=== PATIENT | male | born 1950 | race Caucasian/White ===

== ENCOUNTER 2016-10-25 10:36 | Emergency (ER) | payer OTHER ==
--- NOTE | 2016-10-25 11:35 | EDDOCDS ---
Nurse's Notes [facility] Name: Deepak Rodriguez Age: 65 yrs Sex: Male : 1950 Arrival Date: 10/25/2016 Time: 10:36 Bed TR1 Private MD: Itzel Oshea E Diagnosis: Cellulitis of right toe-Paronychia great toe Presentation: 10/25 10:45 Presenting complaint: Patient states: redness, swelling, and pain to right great toe. dy symptoms started Sunday night. Adult Sepsis Screening: The patient does not have new or worsening altered mentation. Patient's respiratory rate is less than 22. Systolic blood pressure is greater than 100. Patient has a qSOFA score of 0- Negative Sepsis Screen. Suicide/Homicide risk assessment- the patient denies having any suicidal and/or homicidal ideations and does not present with any other emotional, behavioral or mental health complaints. Status: Patient is not a flight service agent or dependent. Transition of care: patient was not received from another setting of care. 10:45 Acuity: PAULINO Level 4 dy 10:45 Method Of Arrival: Walkin/Carried/Asstd dy Triage Assessment: 10:50 General: Appears in no apparent distress. Pain: Location: right first toe. HIV dy screening NA for this visit Offered previously. Musculoskeletal: Circulation, motion, and sensation intact. Historical: - Allergies: No known drug Allergies; - Home Meds: 1. metformin 1,000 mg oral tab 1 tab 2 times per day 2. Novolog 100 unit/mL Sub-Q soln sliding scale 3. enalapril maleate 10 mg Oral tab 1 tab once daily 4. triamterene-hydrochlorothiazid 37.5-25 mg Oral tab 1 tab once daily 5. simvastatin 10 mg Oral tab 1 tab once daily 6. aspirin 81 mg Oral tab 1 tab once daily 7. metoprolol tartrate 25 mg Oral tab 1 tab 2 times per day 8. Toujeo SoloStar 300 unit/mL (1.5 mL) subcutaneous inpn 50 units - PMHx: Hypertension; Diabetes - NIDDM: uncontrolled; Hypercholesterolemia; - PSHx: Tonsillectomy; - Social history: Smoking status: Patient states was never smoker of tobacco. No barriers to communication noted, The patient speaks fluent Cape Verdean, Speaks appropriately for age. - Family history: Not pertinent. - : The pt / caregiver states he / she is not on anticoagulants. Home medication list is obtained from the patient. - Exposure Risk Screening:: None identified. Screenin:32 Screening information is obtained from the patient. Fall risk: No risks identified. mlb1 Assistance ADL's: requires no assistance with activities of daily living. Abuse/DV Screen: The patient / caregiver reports he/she is: not in a situation that causes fear, pain or injury. Nutritional screening: No deficits noted. Advance Directives: Currently, there is no health care proxy. home support is adequate. Assessment: 11:31 General: Appears in no apparent distress, comfortable, Behavior is appropriate for age, mlb1 cooperative. Pain: Location: right first toe Pain currently is 2 out of 10 on a pain scale. Musculoskeletal: Circulation, motion, and sensation intact Swelling present in right first toe. Vital Signs: 10:37 BP 133 / 85; Pulse 71; Resp 18; Temp 97.8(O); Pulse Ox 94% ; Weight 107.95 kg; Height 5 cmb ft. 4 in. (162.56 cm); Pain 7/10; 10:37 Body Mass Index 40.85 (107.95 kg, 162.56 cm) cmb Vitals: 10:37 Log In Time: October 25, 2016 at 10:33. cmb ED Course: 10:37 Patient visited by Darcie Dubon. cmb 10:37 Itzel Oshea is Private Physician. cmb 10:37 Patient moved to Waiting cmb 10:39 Patient moved to Pre RCE cmb 10:46 Triage Initiated dy 10:50 Patient visited by Bertin Bacon RN. dy 11:03 Patient moved to Triage 1 mlb1 11:08 [facility] cc10 11:08 Jersey Hdz MD is Attending Physician. cc10 11:10 Patient visited by Micheal Robbins PA-C. cc10 11:10 Patient visited by Micheal Robbins PA-C. cc10 11:12 Patient visited by Micheal Robbins PA-C. cc10 11:22 Agustín Bonilla DPM is Referral Physician. cc10 11:33 Patient visited by Sukhi Rodriguez RN. mlb1 11:33 Patient moved to TR1 jf3 11:33 The patient / caregiver is instructed regarding the plan of care and ED course. mlb1 11:33 No IV's were initiated during this patient's visit. No procedures done that require mlb1 assistance. Order Results: There are currently no results for this order. Outcome: 11:22 Discharge ordered by Provider. cc10 11:33 Discharge Assessment: Patient awake, alert and oriented x 3. No cognitive and/or mlb1 functional deficits noted. Patient verbalized understanding of disposition instructions. patient administered narcotics - no. The following High Risk Discharge criteria are identified: None. Discharged to home ambulatory. Condition: good. Discharge instructions given to patient, Instructed on discharge instructions, follow up and referral plans. medication usage, wound care, Demonstrated understanding of instructions, medications, Pt was receptive of discharge instructions/ teaching. Prescriptions given X 1. No special radiology studies were completed. Property sent home with patient. 11:33 Patient left the ED. mlb1 Signatures: Bertin Bacon RN RN dy Barney, Michael B RN RN mlDarcie Recio cmb Micheal Robbins, PA-C PA-C cc10 Rigoberto James,KALYANI RN jf3 Corrections: (The following items were deleted from the chart) 10:39 10:37 BP 133 / 85; Pulse 71bpm; Resp 18bpm; Pulse Ox 94%; Temp 97.8F Oral; 107.95 kg; cmb Height 6 ft. 2 in.; BMI: 30.5; Pain 7/10; cmb 10:52 10:50 Home Meds: tejeo daily; 50 units; dayana mlb1 MTDD
--- NOTE | 2016-10-25 11:35 | EDDOCDS ---
Physician Documentation [facility] Name: Deepak Rodriguez Age: 65 yrs Sex: Male : 1950 Arrival Date: 10/25/2016 Time: 10:36 Bed TR1 Private MD: Itzel Oshea E Disposition: 10/25/16 11:22 Discharged to Home/Self Care. Impression: Cellulitis of right toe - Paronychia great toe. - Condition is Stable. - Discharge Instructions: Paronychia. - Prescriptions for Augmentin 875- 125 mg Oral Tablet - take 1 tablet by ORAL route every 12 hours for 10 days; 20 tablet. - Medication Reconciliation, Local Pharmacy Hours form. - Follow up: Emergency Department; When: As needed; Reason: Worsening of conditions. Follow up: Agustín Bonilla DPM; When: Call to arrange an appointment; Reason: Wound/Symptom Recheck, Recheck today's complaints, Worsening of conditions, Continuance of care. - Problem is an ongoing problem. - Symptoms have improved. Historical: - Allergies: No known drug Allergies; - Home Meds: 1. metformin 1,000 mg oral tab 1 tab 2 times per day 2. Novolog 100 unit/mL Sub-Q soln sliding scale 3. enalapril maleate 10 mg Oral tab 1 tab once daily 4. triamterene-hydrochlorothiazid 37.5-25 mg Oral tab 1 tab once daily 5. simvastatin 10 mg Oral tab 1 tab once daily 6. aspirin 81 mg Oral tab 1 tab once daily 7. metoprolol tartrate 25 mg Oral tab 1 tab 2 times per day 8. Toujeo SoloStar 300 unit/mL (1.5 mL) subcutaneous inpn 50 units - PMHx: Hypertension; Diabetes - NIDDM: uncontrolled; Hypercholesterolemia; - PSHx: Tonsillectomy; - Social history: Smoking status: Patient states was never smoker of tobacco. No barriers to communication noted, The patient speaks fluent Azeri, Speaks appropriately for age. - Family history: Not pertinent. - : The pt / caregiver states he / she is not on anticoagulants. Home medication list is obtained from the patient. - Exposure Risk Screening:: None identified. Vital Signs: 10/25 10:37 BP 133 / 85; Pulse 71; Resp 18; Temp 97.8(O); Pulse Ox 94% ; Weight 107.95 kg / 237.99 cmb lbs; Height 5 ft. 4 in. (162.56 cm); Pain 710; 10:37 Body Mass Index 40.85 (107.95 kg, 162.56 cm) cmb Procedures: 11:33 I & D: Incision and drainage was performed for an abscess of the Right first toenail cc10 Prepped with Betadine, Incised with #15 blade. Drained moderate amount purulent fluid. the patient tolerated the procedure well. MDM: 11:31 Financial registration complete. lg Signatures: Debbie Corrales, Reg Reg lg Bertin Bacon, RN RN Sukhi Dumont RN RN mlb1 Micheal Robbins, JEM PARISH cc10 The chart was reviewed and I authenticate all verbal orders and agree with the evaluation and treatment provided.Corrections: (The following items were deleted from the chart) 10:52 10:50 Home Meds: tejeo daily; 50 units; dayana mlb1 MTDD
--- NOTE | 2016-10-27 12:35 | EDDOCDS ---
Physician Documentation [facility] Name: Deepak Rodriguez Age: 65 yrs Sex: Male : 1950 Arrival Date: 10/25/2016 Time: 10:36 Bed TR1 Private MD: Itzel Oshea E Disposition: 10/25/16 11:22 Discharged to Home/Self Care. Impression: Cellulitis of right toe - Paronychia great toe. - Condition is Stable. - Discharge Instructions: Paronychia. - Prescriptions for Augmentin 875- 125 mg Oral Tablet - take 1 tablet by ORAL route every 12 hours for 10 days; 20 tablet. - Medication Reconciliation, Local Pharmacy Hours form. - Follow up: Emergency Department; When: As needed; Reason: Worsening of conditions. Follow up: Agustín Bonilla DPM; When: Call to arrange an appointment; Reason: Wound/Symptom Recheck, Recheck today's complaints, Worsening of conditions, Continuance of care. - Problem is an ongoing problem. - Symptoms have improved. Historical: - Allergies: No known drug Allergies; - Home Meds: 1. metformin 1,000 mg oral tab 1 tab 2 times per day 2. Novolog 100 unit/mL Sub-Q soln sliding scale 3. enalapril maleate 10 mg Oral tab 1 tab once daily 4. triamterene-hydrochlorothiazid 37.5-25 mg Oral tab 1 tab once daily 5. simvastatin 10 mg Oral tab 1 tab once daily 6. aspirin 81 mg Oral tab 1 tab once daily 7. metoprolol tartrate 25 mg Oral tab 1 tab 2 times per day 8. Toujeo SoloStar 300 unit/mL (1.5 mL) subcutaneous inpn 50 units - PMHx: Hypertension; Diabetes - NIDDM: uncontrolled; Hypercholesterolemia; - PSHx: Tonsillectomy; - Social history: Smoking status: Patient states was never smoker of tobacco. No barriers to communication noted, The patient speaks fluent Slovenian, Speaks appropriately for age. - Family history: Not pertinent. - : The pt / caregiver states he / she is not on anticoagulants. Home medication list is obtained from the patient. - Exposure Risk Screening:: None identified. Vital Signs: 10/25 10:37 BP 133 / 85; Pulse 71; Resp 18; Temp 97.8(O); Pulse Ox 94% ; Weight 107.95 kg / 237.99 cmb lbs; Height 5 ft. 4 in. (162.56 cm); Pain 7/10; 10:37 Body Mass Index 40.85 (107.95 kg, 162.56 cm) cmb Procedures: 11:33 I & D: Incision and drainage was performed for an abscess of the Right first toenail cc10 Prepped with Betadine, Incised with #15 blade. Drained moderate amount purulent fluid. the patient tolerated the procedure well. MDM: 11:31 Financial registration complete. lg 11:50 [facility] Payment Agreement was scanned into [employer] and attached to record. lg 14:04 T-Sheet-- Draft Copy was scanned into [employer] and attached to record. gb Signatures: Kathi Mix, Reg Reg gb Debbie Corrales, Reg Reg lg Bertin Bacon, RN Sukhi Godoy RN RN Micheal Cabrera, JEM PAPati cc10 The chart was reviewed and I authenticate all verbal orders and agree with the evaluation and treatment provided.Corrections: (The following items were deleted from the chart) 10:52 10:50 Home Meds: tejeo daily; 50 units; dayana still Attachments: 11:50 [facility] [place] Payment Agreement lg 14:04 T-Sheet-- Draft Copy gb Chart Complete MTDD
--- NOTE | 2016-10-27 12:35 | EDDOCDS ---
Physician Documentation [facility] Name: Deepak Rodriguez Age: 65 yrs Sex: Male : 1950 Arrival Date: 10/25/2016 Time: 10:36 Bed TR1 Private MD: Itzel Oshea E Disposition: 10/25/16 11:22 Discharged to Home/Self Care. Impression: Cellulitis of right toe - Paronychia great toe. - Condition is Stable. - Discharge Instructions: Paronychia. - Prescriptions for Augmentin 875- 125 mg Oral Tablet - take 1 tablet by ORAL route every 12 hours for 10 days; 20 tablet. - Medication Reconciliation, Local Pharmacy Hours form. - Follow up: Emergency Department; When: As needed; Reason: Worsening of conditions. Follow up: Agustín Bonilla DPM; When: Call to arrange an appointment; Reason: Wound/Symptom Recheck, Recheck today's complaints, Worsening of conditions, Continuance of care. - Problem is an ongoing problem. - Symptoms have improved. Historical: - Allergies: No known drug Allergies; - Home Meds: 1. metformin 1,000 mg oral tab 1 tab 2 times per day 2. Novolog 100 unit/mL Sub-Q soln sliding scale 3. enalapril maleate 10 mg Oral tab 1 tab once daily 4. triamterene-hydrochlorothiazid 37.5-25 mg Oral tab 1 tab once daily 5. simvastatin 10 mg Oral tab 1 tab once daily 6. aspirin 81 mg Oral tab 1 tab once daily 7. metoprolol tartrate 25 mg Oral tab 1 tab 2 times per day 8. Toujeo SoloStar 300 unit/mL (1.5 mL) subcutaneous inpn 50 units - PMHx: Hypertension; Diabetes - NIDDM: uncontrolled; Hypercholesterolemia; - PSHx: Tonsillectomy; - Social history: Smoking status: Patient states was never smoker of tobacco. No barriers to communication noted, The patient speaks fluent Vietnamese, Speaks appropriately for age. - Family history: Not pertinent. - : The pt / caregiver states he / she is not on anticoagulants. Home medication list is obtained from the patient. - Exposure Risk Screening:: None identified. Vital Signs: 10/25 10:37 BP 133 / 85; Pulse 71; Resp 18; Temp 97.8(O); Pulse Ox 94% ; Weight 107.95 kg / 237.99 cmb lbs; Height 5 ft. 4 in. (162.56 cm); Pain 7/10; 10:37 Body Mass Index 40.85 (107.95 kg, 162.56 cm) cmb Procedures: 11:33 I & D: Incision and drainage was performed for an abscess of the Right first toenail cc10 Prepped with Betadine, Incised with #15 blade. Drained moderate amount purulent fluid. the patient tolerated the procedure well. MDM: 11:31 Financial registration complete. lg 11:50 [facility] Payment Agreement was scanned into [employer] and attached to record. lg 14:04 T-Sheet-- Draft Copy was scanned into [employer] and attached to record. gb Signatures: Kathi Mix, Reg Reg gb Debbie Corrales, Reg Reg lg Bertin Bacon, RN Sukhi Godoy RN RN Micheal Cabrera, JEM PAPati cc10 The chart was reviewed and I authenticate all verbal orders and agree with the evaluation and treatment provided.Corrections: (The following items were deleted from the chart) 10:52 10:50 Home Meds: tejeo daily; 50 units; dayana still Attachments: 11:50 [facility] [place] Agreement lg 14:04 T-Sheet-- Draft Copy gb Chart Complete MTDD
--- NOTE | 2016-10-27 12:35 | EDDOCDS ---
Nurse's Notes [facility] Name: Deepak Rodriguez Age: 65 yrs Sex: Male : 1950 Arrival Date: 10/25/2016 Time: 10:36 Bed TR1 Private MD: Itzel Oshea E Diagnosis: Cellulitis of right toe-Paronychia great toe Presentation: 10/25 10:45 Presenting complaint: Patient states: redness, swelling, and pain to right great toe. dy symptoms started Sunday night. Adult Sepsis Screening: The patient does not have new or worsening altered mentation. Patient's respiratory rate is less than 22. Systolic blood pressure is greater than 100. Patient has a qSOFA score of 0- Negative Sepsis Screen. Suicide/Homicide risk assessment- the patient denies having any suicidal and/or homicidal ideations and does not present with any other emotional, behavioral or mental health complaints. Status: Patient is not a financial services internship or dependent. Transition of care: patient was not received from another setting of care. 10:45 Acuity: PAULINO Level 4 dy 10:45 Method Of Arrival: Walkin/Carried/Asstd dy Triage Assessment: 10:50 General: Appears in no apparent distress. Pain: Location: right first toe. HIV dy screening NA for this visit Offered previously. Musculoskeletal: Circulation, motion, and sensation intact. Historical: - Allergies: No known drug Allergies; - Home Meds: 1. metformin 1,000 mg oral tab 1 tab 2 times per day 2. Novolog 100 unit/mL Sub-Q soln sliding scale 3. enalapril maleate 10 mg Oral tab 1 tab once daily 4. triamterene-hydrochlorothiazid 37.5-25 mg Oral tab 1 tab once daily 5. simvastatin 10 mg Oral tab 1 tab once daily 6. aspirin 81 mg Oral tab 1 tab once daily 7. metoprolol tartrate 25 mg Oral tab 1 tab 2 times per day 8. Toujeo SoloStar 300 unit/mL (1.5 mL) subcutaneous inpn 50 units - PMHx: Hypertension; Diabetes - NIDDM: uncontrolled; Hypercholesterolemia; - PSHx: Tonsillectomy; - Social history: Smoking status: Patient states was never smoker of tobacco. No barriers to communication noted, The patient speaks fluent Belarusian, Speaks appropriately for age. - Family history: Not pertinent. - : The pt / caregiver states he / she is not on anticoagulants. Home medication list is obtained from the patient. - Exposure Risk Screening:: None identified. Screenin:32 Screening information is obtained from the patient. Fall risk: No risks identified. mlb1 Assistance ADL's: requires no assistance with activities of daily living. Abuse/DV Screen: The patient / caregiver reports he/she is: not in a situation that causes fear, pain or injury. Nutritional screening: No deficits noted. Advance Directives: Currently, there is no health care proxy. home support is adequate. Assessment: 11:31 General: Appears in no apparent distress, comfortable, Behavior is appropriate for age, mlb1 cooperative. Pain: Location: right first toe Pain currently is 2 out of 10 on a pain scale. Musculoskeletal: Circulation, motion, and sensation intact Swelling present in right first toe. Vital Signs: 10:37 BP 133 / 85; Pulse 71; Resp 18; Temp 97.8(O); Pulse Ox 94% ; Weight 107.95 kg; Height 5 cmb ft. 4 in. (162.56 cm); Pain 7/10; 10:37 Body Mass Index 40.85 (107.95 kg, 162.56 cm) cmb Vitals: 10:37 Log In Time: October 25, 2016 at 10:33. cmb ED Course: 10:37 Patient visited by Darcie Dubon. cmb 10:37 Itzel Oshea is Private Physician. cmb 10:37 Patient moved to Waiting cmb 10:39 Patient moved to Pre RCE cmb 10:46 Triage Initiated dy 10:50 Patient visited by Bertin Bacon RN. dy 11:03 Patient moved to Triage 1 mlb1 11:08 [facility] Robbins [facility] cc10 11:08 Jersey Hdz MD is Attending Physician. cc10 11:10 Patient visited by Micheal Robbins PA-C. cc10 11:10 Patient visited by Micheal Robbins PA-C. cc10 11:12 Patient visited by Micheal Robbins PA-C. cc10 11:22 Agustín Bonilla DPM is Referral Physician. cc10 11:33 Patient visited by Sukhi Rodriguez RN. mlb1 11:33 Patient moved to TR1 jf3 11:33 The patient / caregiver is instructed regarding the plan of care and ED course. mlb1 11:33 No IV's were initiated during this patient's visit. No procedures done that require mlb1 assistance. 11:48 Patient name changed from Deepak\S\L\S\White\S\ to Deepak\S\Flavio\S\White. EDMS 11:50 [facility] [place] Payment Agreement was scanned into [employer] and attached to record. 14:04 T-Sheet-- Draft Copy was scanned into [employer] and attached to record. gb Order Results: There are currently no results for this order. Outcome: 11:22 Discharge ordered by Provider. cc10 11:33 Discharge Assessment: Patient awake, alert and oriented x 3. No cognitive and/or mlb1 functional deficits noted. Patient verbalized understanding of disposition instructions. patient administered narcotics - no. The following High Risk Discharge criteria are identified: None. Discharged to home ambulatory. Condition: good. Discharge instructions given to patient, Instructed on discharge instructions, follow up and referral plans. medication usage, wound care, Demonstrated understanding of instructions, medications, Pt was receptive of discharge instructions/ teaching. Prescriptions given X 1. No special radiology studies were completed. Property sent home with patient. 11:33 Patient left the ED. mlb1 Signatures: Dispatcher [employer] EDNM Kathi Mix, Reg Reg gb Debbie Corrales, Reg Reg lg Bertin Bacon RN RN dy Barney, Michael B, RN RN mlb1 Darcie Dubon cmb Micheal Robbins, PA-C PA-C cc10 Rigoberto James RN RN jf3 Corrections: (The following items were deleted from the chart) 10:39 10:37 BP 133 / 85; Pulse 71bpm; Resp 18bpm; Pulse Ox 94%; Temp 97.8F Oral; 107.95 kg; cmb Height 6 ft. 2 in.; BMI: 30.5; Pain 7/10; cmb 10:52 10:50 Home Meds: tejeo daily; 50 units; dy mlb1 Chart Complete MTDD
== END 2016-10-25 11:33 | disposition home or self-care (01) ==
LOC: M ED 10:36
DX: L03.041 Acute lymphangitis of right toe (principal); I10 Essential (primary) hypertension; E11.9 Type 2 diabetes mellitus without complications; E78.00 Pure hypercholesterolemia, unspecified; Z79.899 Other long term (current) drug therapy; Z79.4 Long term (current) use of insulin; Z79.82 Long term (current) use of aspirin

== ENCOUNTER → 2017-06-28 | Outpatient (REF) | payer OTHER | LOC: M LAB REF 07:39 | PROVIDERS: ATTEND Internal Medicine | DX: E78.5 Hyperlipidemia, unspecified (principal) ==

== ENCOUNTER 2017-09-14 13:59 | Inpatient (IN) | payer OTHER ==
[~2017-09-14] VITALS: Ht 175.3 cm; Wt 101.2 kg
[2017-09-14] MEDS ORDERED: SERT-138 (14:48)
[2017-09-14] MEDS ORDERED: SIMV40TA2 (14:48)
[2017-09-14] MEDS ORDERED: ENAL10TA2 (14:48)
[2017-09-14] MEDS ORDERED: TRAZ-136 (14:48)
[2017-09-14] MEDS ORDERED: TRIA37.53 (14:48)
[2017-09-14] MEDS ORDERED: METO1TAB7 (14:48)
[2017-09-14] MEDS ORDERED: HUMA100I5 (14:48)
[2017-09-14] MEDS ORDERED: TOUJ1.2I (14:48)
[2017-09-14] MEDS ORDERED: NOVO32MI (14:48)
[2017-09-14] MEDS ORDERED: METF500T13 (14:48)
[2017-09-14] MEDS ORDERED: MORPHINE 2 MG/ML 1ML SYRINGE IV ONE (17:45)
[2017-09-14] MEDS ORDERED: NS 1,000 ML IV ONE ×2 (17:45→22:45)
[2017-09-14 18:04] LABS: BASO % 0.3 % (0.0-1.0); EOS % 0.3 % (0.0-3.0); IMMATURE GRANULOCYTE % 0.4 % (0-0); LYMPH # 2.1 10^3/uL (1.5-4.5); LYMPH % 16.3 % (24.0-44.0); MEAN CORPUSCULAR HEMOGLOBIN 30.2 pg (27.0-33.0); MEAN CORPUSCULAR HGB CONC 34.1 g/dl (32.0-36.5); MEAN CORPUSCULAR VOLUME 88.5 fl (80.0-96.0); MONO # 0.9 10^3/uL (0.0-0.8); MONO % 6.6 % (0.0-5.0); NEUTROPHILS % 76.1 % (36.0-66.0); PLATELET COUNT, AUTOMATED 349 10^3/uL (150-450); RED CELL DISTRIBUTION WIDTH 12.9 % (11.5-14.5); WHITE BLOOD COUNT 13.1 10^3/uL (4.0-10.0)
[2017-09-14 18:27] LABS: ANION GAP 9 MEQ/L (8-16); BLOOD UREA NITROGEN 21 MG/DL (7-18); CALCIUM LEVEL 9.5 MG/DL (8.8-10.2); CARBON DIOXIDE LEVEL 28 MEQ/L (21-32); CHLORIDE LEVEL 90 MEQ/L (98-107); CREATININE FOR GFR 0.92 MG/DL (0.70-1.30); GLOMERULAR FILTRATION RATE > 60.0 (>49); GLUCOSE, FASTING 354 MG/DL (80-110); INR 1.03; POTASSIUM SERUM 4.3 MEQ/L (3.5-5.1); SODIUM LEVEL 127 MEQ/L (136-145)
--- NOTE | 2017-09-14 18:47 | REP ---
Chest two views HISTORY: Chest pain Comparison: None The lungs are clear. The heart is normal in size. The pulmonary vasculature is normal in appearance. The bony structure is intact. IMPRESSION: No acute disease. Signed by Nigel Glaser MD 09/14/2017 06:39 P
--- NOTE | 2017-09-14 19:00 | REPUSA ---
Clinical history: Pain, swelling. Findings: The common femoral, superficial femoral, popliteal, and other deep venous structures compre ss normally and demonstrate normal color Doppler flow. Normal venous waveforms with augmentation are seen. Impression: No evidence of deep vein thrombosis in the right femoral popliteal venous system.
[2017-09-14 19:26] LABS: T UPTAKE 37 % (33-40); THYROXINE (T4) 8.4 UG/DL (4.5-12.0)
[2017-09-14] MEDS ORDERED: INSUHUMDS SC (20:27)
[2017-09-14] MEDS ORDERED: TRIA37.53 PO (20:27)
[2017-09-14] MEDS ORDERED: METO1TAB7 PO (20:27)
[2017-09-14] MEDS ORDERED: SIMV40TA2 PO (20:27)
[2017-09-14] MEDS ORDERED: TOUJ1.2I SC (20:27)
[2017-09-14] MEDS ORDERED: ENAL10TA2 PO (20:27)
[2017-09-14] MEDS ORDERED: SERT-138 PO (20:27)
[2017-09-14] MEDS ORDERED: TRAZ-136 PO (20:27)
[2017-09-14] MEDS ORDERED: TYLE650T35 PO (20:27)
[2017-09-14] MEDS ORDERED: METF500T13 PO (20:27)
[2017-09-14] MEDS ORDERED: ISOVUE-370 76% 100ML VIAL (Q9967) As Ordered ONE (21:09)
--- NOTE | 2017-09-14 22:00 | REPUSA ---
CT of the right lower leg with contrast Clinical statement: Pain.. Edema. Rule out abscess. Technique: Multiple axial CT images were obtained with 5 mm cuts through the right lower extremity af ter administration of nonionic intravenous contrast. Coronal and sagittal reconstructions were also o btained. No comparison is available. Findings: The osseous structures do not demonstrate any fractures or dislocations. The joint spaces a re well-maintained. There is extensive lateral soft tissue swelling. There is a loculated fluid colle ction in the mid-lower leg along the lateral aspect, measuring 1.7 x 1.7 x 8.0 cm, well circumscribed peripheral enhancement. The vascular structures otherwise unremarkable. Impression: 1. Abscess located in the lateral soft tissues of the right lower leg, as described. 2. No acute osseous abnormalities.
[2017-09-14] MEDS ORDERED: DEXTROSE 50% 50 ML SYRINGE IV PRN (22:30)
[2017-09-14] MEDS ORDERED: GLUCOSE 4 GM CHEW TABLET PO PRN (22:30)
[2017-09-14] MEDS ORDERED: ACETAMINOPHEN 650MG ER TAB (TYLENOL ARTHRITIS) PO PRN (22:30)
[2017-09-14] MEDS ORDERED: GLUCAGON FOR INJ 1 MG VIAL (J1610) SC PRN (22:30)
[2017-09-14] MEDS ORDERED: VANCOMYCIN HCL 1,000 MG, VIAL MATE ADAPTER 1 EACH in D5W 250 ML IV ONE ×2 (22:45→23:45)
--- NOTE | 2017-09-14 23:00 | HPEPDOC ---
General Date of Admission Sep 14, 2017 at 22:06 Primary Care Physician: JM PRIETO DO Chief Complaint The patient is a 66-year-old male admitted with a reason for visit of Abscess Of Right Leg, Cellulitis Of Right Lower Ex. Source: Patient, Family Exam Limitations: No limitations Severity: Severe History of Present Illness Mr. Rodriguez is a 66-year-old male with past medical history of hypertension, paroxysmal A. fib not on anticoagulation due to patient refusal, diabetes, hyperlipidemia who presents to the emergency department with the complaint of right lower extremity swelling, redness and pain. The patient states that he took a flight at the end of July 2017 from [place] to [place] and noted that at the end his journey when walking off the plane he had a very acute onset of intense painful cramping in the calf of the right lower extremity. The patient states that he does get calf cramps intermittently and did not think too much of it. He then started to notice about 10 days after this that his right lower extremity was becoming swollen and red, he went to his PCP and an ultrasound was done which ruled out DVT, he was apparently told to elevate his foot and take [id number] pain medications. The patient states that the swelling, pain and redness progressively worsened, he went back to his PCP and was given amoxicillin the week after 2016, he has been taking this faithfully but admits there has been no change and he feels that it is continuing to worsen, thus he presented to the ED for further evaluation. He states that prior to this he was in good health, did not experience any nausea vomiting, chills or muscle aches but states he had a temperature at home of 100.5, no abdominal pain nor pain with defecation but he does state he has had loose stools since being the amoxicillin, no pain with urination or blood in urine or stool. The patient denies any history of trauma to the area, he works indoors and has not been working outside in his garden for at least a month. He states he has not noticed any pus or fluid coming from his leg, it is very painful for him to move, touch or bear weight on his right leg. He apparently does have a history of atrial fibrillation and tried anticoagulation but has been off of it for the past 3 months due to his refusal to continue with therapy. He does admit that due to the pain in his right lower extremity he has had a decreased appetite for the past few days. Home Medications Scheduled (Dimple Peacockostar) 300 Unit/Ml Inj, 50 UNIT SC DAILY, (Reported) Enalapril Maleate (Enalapril Maleate) 10 Mg Tab, 10 MG PO DAILY, (Reported) Hydrochlorothiazide W/Triamter (Triamterene/Hydrochloroth 37.5-25 mg) 1 Cap Cap , 1 CAP PO DAILY, (Reported) Insulin Human Lispro (Humalog) 1 Units/0.01 Ml Inj, 1 DOSE SC BIDWM, (Reported) PER SLIDING SCALE, STATES NEVER DOES LESS THAN 15U Metformin Hydrochloride (Metformin HCl) 500 Mg Tab, 1,000 MG PO BID, (Reported) Metoprolol Succinate (Metoprolol Succinate ER) 50 Mg Tab, 50 MG PO BID, ( Reported) Sertraline HCl (Sertraline HCl) 100 Mg Tab, 100 MG PO DAILY, (Reported) Simvastatin - High Dose (Simvastatin) 40 Mg Tab, 40 MG PO QHS, (Reported) Trazodone HCl (Trazodone HCl) 100 Mg Tab, 100 MG PO QHS, (Reported) Scheduled PRN Acetaminophen (Tylenol 8 Hour Arthritis) 650 Mg Tab, 1,300 MG PO Q8H PRN for PAIN, (Reported) Allergies Coded Allergies: No Known Drug Allergy (Verified Allergy, Unknown, 09/14/17) Past Medical History Medical History as per [facility] Surgical History TNA surgery as a teenager Family History Significant Family History: No pertinent family hx Social History * Smoker: Denies Alcohol: Denies Drugs: denies Psychosocial History: Decreased mood (the patient recently lost his in February 2017) He lives at home by self and has a daughter and stepson nearby Review of Symptoms Constitutional: Reports: Fever, Malaise, Denies: Chills, Night Sweats, Weakness Eyes: Denies: Pain ENT: Denies: Head Aches Skin: Reports: Other (right lower extremity swelling and redness) Pulmonary: Denies: Dyspnea, Cough Cardiovascular: Reports: Edema (right lower extremity), Denies: Chest Pain, Palpitations, Orthopnea, Lt Headedness Gastrointestinal: Denies: Nausea Genitourinary: Denies: Dysuria, Frequency Hematologic: Denies: Bruising Musculoskeletal: Reports: Foot Pain (right lower extremity) Neurological: Denies: Weakness, Numbness Psych: Reports: Mood Normal Physical Examination General Exam: Positive: Alert, Cooperative, Moderate Distress Eye Exam: Positive: Conjunctiva & lids normal, EOMI ENT Exam: Positive: Atraumatic, Pharynx Normal, Tongue Midline, Negative: Mucous membr. moist/pink (membranes seem dry) Neck Exam: Positive: Supple Chest Exam: Positive: Clear to auscultation, Normal air movement, Negative: Rales, Rhonchi, Wheezing Heart Exam: Positive: Tachycardic (A. fib with rate between 80-114), Irregular Rhythm, Normal S1, Normal S2, Negative: Gallops, Murmurs, Rubs Telemetry: Positive: Atrial fibrillation Abdomen Exam: Positive: Normal bowel sounds, Soft, Negative: Tenderness, Hepatospenomegaly Extremity Exam: Positive: Edema (right lower extremity +2,), Normal pulses ( bilateral lower extremity dorsalis pedis strong pulses), Tenderness (right anterior kaur), Swelling (right LE), Negative: Clubbing, Cyanosis Skin Exam: Positive: Other skin issue (right lower extremity swelling and redness) Neuro Exam: Positive: Normal Speech Psych Exam: Positive: Mental status NL Vital Signs Vital Signs Date Time Temp Pulse Resp B/P (MAP) Pulse Ox O2 Delivery O2 Flow Rate FiO2 09/14/17 21:44 88 93 09/14/17 20:08 134/76 (95) 09/14/17 18:00 20 Room Air 09/14/17 13:59 96.3 Laboratory Data Labs 24H Laboratory Tests 2 09/14/17 17:48: Immature Granulocyte % (Auto) 0.4H, White Blood Count 13.1H, Red Blood Count 5.13, Hemoglobin 15.5, Hematocrit 45.4, Mean Corpuscular Volume 88.5, Mean Corpuscular Hemoglobin 30.2, Mean Corpuscular Hemoglobin Concent 34.1, Red Cell Distribution Width 12.9, Platelet Count 349, Neutrophils (%) (Auto) 76.1H, Lymphocytes (%) (Auto) 16.3L, Monocytes (%) (Auto) 6.6H, Eosinophils (%) (Auto) 0.3, Basophils (%) (Auto) 0.3, Neutrophils # (Auto) 10.0H, Lymphocytes # (Auto) 2.1, Monocytes # (Auto) 0.9H, Eosinophils # (Auto) 0.0, Basophils # (Auto) 0.0, Immature Granulocyte # (Auto) 0.1H, Nucleated Red Blood Cells % (auto) 0.0, Prothrombin Time 13.6, Prothromb Time International Ratio 1.03, Anion Gap 9, Glomerular Filtration Rate > 60.0, Lactic Acid Level 2.4*H, Blood Urea Nitrogen 21H, Creatinine 0.92, Sodium Level 127L, Potassium Level 4.3, Chloride Level 90L , Carbon Dioxide Level 28, Calcium Level 9.5, Total Creatine Kinase 41, Creatine Kinase MB 1.0, Creatine Kinase MB Relative Index 2.43, Troponin I < 0.02, Thyroid Stimulating Hormone (TSH) 1.680, Free Thyroxine Index 3.1, Thyroxine (T4) 8.4, Triiodothyronine (T3) Uptake 37 09/14/17 22:12: CBC/BMP Laboratory Tests 09/14/17 17:48 Red Blood Count 5.13, Mean Corpuscular Volume 88.5, Mean Corpuscular Hemoglobin 30.2, Mean Corpuscular Hemoglobin Concent 34.1, Red Cell Distribution Width 12.9 , Neutrophils (%) (Auto) 76.1 H, Lymphocytes (%) (Auto) 16.3 L, Monocytes (%) ( Auto) 6.6 H, Eosinophils (%) (Auto) 0.3, Basophils (%) (Auto) 0.3, Neutrophils # (Auto) 10.0 H, Lymphocytes # (Auto) 2.1, Monocytes # (Auto) 0.9 H, Eosinophils # (Auto) 0.0, Basophils # (Auto) 0.0, Calcium Level 9.5, Total Creatine Kinase 41 Microbiology Microbiology 09/14/17 Blood Culture, Received Pending 09/14/17 Blood Culture, Received Pending Assessment/Plan This is a 66-year-old male who presents to the emergency department with over 1 month history of progressive swelling, pain and redness of right lower extremity. 1. Sepsis Patient meets sepsis criteria with source of right lower extremity cellulitis Patient has failed outpatient antibiotic therapy, will admit for IV antibiotics Percocet and morphine for pain control We'll continue vancomycin and levofloxacin inpatient, patient is diabetic Wound culture cannot be obtained as there is no open area to culture from DVT ruled out in ED with ultrasound CT tib-fib did demonstrate a 1.7 x 8.0 cm abscess, surgery has been consulted, appreciate their help and recommendations, patient may require I&D, surgery to see the patient Will elevate foot 2. Hypovolemic hyponatremia Patient has had decreased oral intake over the past few days Sodium 127, mild hyponatremia Patient received 1 L bolus normal saline Patient will receive another bolus of normal saline and be continued on maintenance fluids of normal saline running at 125 3. Hypertension We'll continue with home medications 4. A. fib -The patient's EKG in the emergency department did demonstrate atrial fibrillation, the patient's rate varied from 60's to the one-teens -Despite an extensive conversation with the patient about the risk of not being anticoagulated which could include such events as stroke and possible , the patient still denied wanting to begin anticoagulation, he verbalized his understanding and had no questions 5. Diabetes Will hold home toujeou 50 QD and begin levemir 40 sc QHS d/c metformin sliding scale inpatient 6. Depression We'll continue home sertraline 7. DVT prophylaxis SCD teds not to be applied to right lower extremity Plan / VTE VTE Prophylaxis Ordered?: Yes GME ATTESTATION GME ATTESTATION My faculty preceptor for this patient encounter was physically present during the encounter and was fully available. All aspects of the patient interview, examination, medical decision making process, and medical care plan development were reviewed and approved by the faculty preceptor. The faculty preceptor is aware and concurs with the plan as stated in the body of this note and will attest to such by his/her cosignature. PANCHO KEE DO Sep 14, 2017 23:00
[2017-09-14 23:07] VITALS: BP 158/82
[2017-09-14] MEDS: traZODone 100 MG TAB PO SCH (23:59)
[2017-09-14] MEDS: HumaLOG INSULIN (NovoLOG) PER UNIT SC SCH (23:59)
[2017-09-15] MEDS: NS 1,000 ML IV SCH ×3 (00:01→19:45)
[2017-09-15] MEDS: LevoFLOXacin IV 500 MG in APPROPRIATE DILUENT 1 EA IV SCH (01:32)
[2017-09-15] MEDS: SIMVASTATIN 40 MG TAB PO SCH ×2 (01:32→21:26)
[2017-09-15] MEDS: PERCOCET 5MG/325MG TAB PO PRN ×4 (01:33→19:39)
[2017-09-15] MEDS ORDERED: LEVEMIR (INSULIN DETEMIR) 1 UNITS/0.01ML SC ONE (03:15)
[2017-09-15 04:00] VITALS: BP 123/74
--- NOTE | 2017-09-15 05:42 | PHACANCOPD ---
PHARMACY VANCOMYCIN DOSING Pt Demographics Demographics Patient Age:66 , Weight:98.640 , Gender: male Adjusted Body Weight Date: 09/15/17, Adjusted Body Weight: [81.9] Kg Vancomycin Vancomycin indication: RLE CELLULITIS Vancomycin Target Ranges: 10-20 mcg/ml Vancomycin Load Y/N: No Load Dose Date Time Vancomycin Load Dose: Date: Time: Vancomycin Dose Date: 09/15/17. Current Vancomycin Dose: [1 GM IV Q12] Intermittent Dosing?: No Labs Labs Laboratory Tests 09/14/17 17:48 Red Blood Count 5.13, Mean Corpuscular Volume 88.5, Mean Corpuscular Hemoglobin 30.2, Mean Corpuscular Hemoglobin Concent 34.1, Red Cell Distribution Width 12.9 , Neutrophils (%) (Auto) 76.1 H, Lymphocytes (%) (Auto) 16.3 L, Monocytes (%) ( Auto) 6.6 H, Eosinophils (%) (Auto) 0.3, Basophils (%) (Auto) 0.3, Neutrophils # (Auto) 10.0 H, Lymphocytes # (Auto) 2.1, Monocytes # (Auto) 0.9 H, Eosinophils # (Auto) 0.0, Basophils # (Auto) 0.0, Calcium Level 9.5, Total Creatine Kinase 41 Micro Microbiology 09/14/17 Blood Culture, Received Pending 09/14/17 Blood Culture, Received Pending Creatinine Clearance Date:09/15/17. Creatinine Clearance: [92.7]CALCULATED. Pending Labs TRPOGH DUE 09/16@0500 Assessment and Plan Maintaining Current Dose?: Yes Reason for dose change: No Dose Change Pharmacist Note Pharmacist Note Date: 09/15/17. Pharmacist note:[id number] Admitted d/t RLE CELLULITIS .ht:69",wt;98.6 (ABW=81.9kg),SCR=0.92,CRCl=92.7 calculated.NKDA,Vancomycin 1 GM in ED@ 12mid.then will continue W02dembp.First trough scheduled for 09/16@0500-will continue to follow [facility] Sep 15, 2017 05:42
[2017-09-15 06:20] LABS: BASO % 0.3 % (0.0-1.0); EOS # 0.2 10^3/uL (0.0-0.50); EOS % 1.6 % (0.0-3.0); IMMATURE GRANULOCYTE % 0.4 % (0-0); LYMPH # 2.3 10^3/uL (1.5-4.5); LYMPH % 20.6 % (24.0-44.0); MEAN CORPUSCULAR HEMOGLOBIN 29.5 pg (27.0-33.0); MEAN CORPUSCULAR HGB CONC 33.7 g/dl (32.0-36.5); MEAN CORPUSCULAR VOLUME 87.4 fl (80.0-96.0); MONO # 1.1 10^3/uL (0.0-0.8); MONO % 9.5 % (0.0-5.0); NEUTROPHILS # 7.5 10^3/uL (1.8-7.7); NEUTROPHILS % 67.6 % (36.0-66.0); PLATELET COUNT, AUTOMATED 280 10^3/uL (150-450); RED CELL DISTRIBUTION WIDTH 13.1 % (11.5-14.5); WHITE BLOOD COUNT 11.1 10^3/uL (4.0-10.0)
[2017-09-15 06:41] LABS: ANION GAP 7 MEQ/L (8-16); BLOOD UREA NITROGEN 16 MG/DL (7-18); CALCIUM LEVEL 8.7 MG/DL (8.8-10.2); CARBON DIOXIDE LEVEL 29 MEQ/L (21-32); CHLORIDE LEVEL 97 MEQ/L (98-107); CREATININE FOR GFR 0.72 MG/DL (0.70-1.30); GLOMERULAR FILTRATION RATE > 60.0 (>49); GLUCOSE, FASTING 349 MG/DL (80-110); POTASSIUM SERUM 4.3 MEQ/L (3.5-5.1); SODIUM LEVEL 133 MEQ/L (136-145)
[2017-09-15 08:00] VITALS: BP 140/80
[2017-09-15] MEDS: VANCOMYCIN HCL 1,000 MG, VIAL MATE ADAPTER 1 EACH in D5W 250 ML IV SCH ×2 (08:31→17:48)
[2017-09-15] MEDS: HumaLOG INSULIN (NovoLOG) PER UNIT SC SCH ×4 (08:31→21:28)
[2017-09-15] MEDS: METOPROLOL SUCC (TopROL XL) 50MG **XL** TAB PO SCH ×3 (08:32→21:26)
[2017-09-15] MEDS: ENALAPRIL MALEATE 10 MG TAB PO SCH (08:32)
[2017-09-15] MEDS: SERTRALINE 100 MG TAB PO SCH (08:32)
[2017-09-15] MEDS ORDERED: LEVEMIR (INSULIN DETEMIR) 1 UNITS/0.01ML SC SCH (09:00)
[2017-09-15] MEDS ORDERED: ENOXAPARIN 40 MG/0.4 ML SYRINGE (J1650) SC SCH (09:00)
--- NOTE | 2017-09-15 10:48 | ECGEPIP ---
Stationary ECG Study [facility] - ED Test Date: 2017-09-14 Pat Name: LOLA ANGULO Department: Room: - Gender: M [employer]: [place] : 1950 Requested By: DESTINY Wiley PA-C Order Number: [id number] Reading MD: Leslie Cortes Measurements Intervals [place] Rate: 78 P: [place]: 0 QRS: -35 QRSD: 136 T: 0 QT: 438 QTc: 500 Interpretive Statements ATRIAL FIBRILLATION WITH ABERRANT CONDUCTION OR VENTRICULAR PREMATURE COMPLEXES INDETERMINATE AXIS RIGHT BUNDLE BRANCH BLOCK NO PRIOR FOR COMPARISON Electronically Signed On 09-15-2017 10:48:42 EST by Leslie Cortes
--- NOTE | 2017-09-15 14:52 | IPN ---
DATE: 09/15/2017 SUBJECTIVE: The patient tells me that he is feeling a little bit better but not much. He still has significant pain in his right lower extremity. He denies any other pains, fevers, chills, chest pain, shortness of breath, nausea, vomiting or diarrhea. OBJECTIVE: VITAL SIGNS: Temperature 97.2, pulse 80, respiratory rate 20, blood pressure 140/80, oxygen saturation 95% on room air. GENERAL: He is a pleasant elderly man laying in bed comfortably. He does not appear to be in any acute distress. He is accompanied by his stepdaughter and son. HEENT: Cranial nerves II-XII are grossly intact. He has moist mucous membranes. No elevation of central venous pressure (CVP) but difficult to assess secondary to his [place]. CARDIOVASCULAR EXAM: S1, S2 regular. RESPIRATORY EXAM: Clear. ABDOMINAL EXAM: Obese. Bowel sounds present. The abdomen is soft. EXTREMITIES: The patient has an area of swelling, erythema and tenderness with some mild fluctuance on the lateral aspect of his right tibia. LABORATORY STUDIES: WBC 11.1, down from 13. Hemoglobin 14.5, platelet count 280. Chemistry panel: Sodium 133, up from 127, potassium 4.3, chloride 97, bicarbonate 29, BUN 16, creatinine 0.7, lactic acid was 2.4 initially, repeat 4 hours later was 1.7. He had a TSH within normal limits. Blood cultures are currently pending. IMAGING: The patient had a CT scan of his lower extremity that revealed a 1.7 x 8cm well-circumscribed peripheral enhancement. Abscess versus hematoma. He had a duplex of the lower extremity that did not reveal any deep vein thrombosis (DVT). He had a chest x-ray that did not reveal any acute disease. ASSESSMENT AND PLAN: This is a 66-year-old man with pain and swelling of the right lower extremity. PROBLEMS: 1. Pain and swelling of the right lower extremity. There is certainly concern for abscess given that he presented with leukocytosis, elevated lactic acid and some mild tachycardia. At the present time, with intravenous (IV) fluids and his current antibiotic regimen, he does appear to be improving quite well. I did speak with Dr. Marmolejo today who is less convinced that this is an abscess and feels it is more likely a hematoma. Dr. Marmolejo feels as though this is a possible hematoma, possibly not an abscess and has elected not to complete an incision and drainage (I and D). At this time, we will continue to treat with antibiotics, keep his leg elevated and see if it improves. His blood work does appear to be improving with IV fluids. 2. Hypovolemic hyponatremia, resolving with IV fluids. Continue his IV fluids. 3. Hypertension. He is continued on his enalapril and metoprolol. 4. Insomnia. He is continued on trazodone. 5. Dyslipidemia. He is continued on Zocor. 6. Atrial fibrillation. The patient has a history of atrial fibrillation. He is rate controlled with metoprolol. He has declined anticoagulation in the past and is aware of the risk of this. A conversation was had with him once again yesterday evening. 7. Type 2 diabetes. He is on sliding scale insulin and his fingersticks are controlled. 8. Mood disorder. He is on Zoloft. 9. Deep vein thrombosis (DVT) prophylaxis. Sequentials and thromboembolism deterrents (TEDs). I will start the patient on Lovenox. EMMA
[2017-09-15 15:00] VITALS: BP 162/84
--- NOTE | 2017-09-15 16:40 | CR ---
DATE OF CONSULTATION: 09/15/2017 CHIEF COMPLAINT: Painful swelling, right lower extremity. BRIEF HISTORY OF PRESENT ILLNESS: Patient is a 66-year-old male who presents with a history of acute onset of right kaur pain that occurred while he was flying. When he was seen after the flight, he had cramping in the calf and on the kaur. He noticed that about 10 days after this he had some swelling and had some mild erythema. Had an ultrasound performed as an outpatient that revealed no evidence of deep vein thrombosis (DVT). Was told to keep his foot elevated and was taking over-the counter medication. The swelling, pain worsened, and he was given antibiotics and despite keeping his leg elevated noticed more pain and discomfort. He has had a slightly elevated temperature of 105 at home and now presents for pain and discomfort in this area. CT scan was performed that revealed possible fluid collection in the right lower extremity. The patient has not been on any significant anticoagulation, although he does have some paroxysmal atrial fibrillation. PAST MEDICAL HISTORY: Significant for: 1. History of diabetes mellitus. 2. History of hyperlipidemia. 3. History of hypertension. 4. History of atrial fibrillation. 5. History of tonsillectomy. MEDICATIONS: Include Toujeo, enalapril, hydrochlorothiazide, insulin, metformin, metoprolol, sertraline, simvastatin, and trazodone. PHYSICAL EXAMINATION: Reveal a 66-year-old male who looks stated age. HEENT: Unremarkable. NECK: Supple. No adenopathy. LUNGS: Clear to auscultation without crackles, wheezes, or rhonchi. HEART: Regular with multiple irregular beats. ABDOMEN: Soft, nontender, nondistended. His right lower extremity does reveal some pitting edema distal to this swollen area inferior to the knee on the right-hand side, but it is only about 1+ and at most 2+ pitting edema; however, in the area of the swelling he has 2+ to 3+ pitting edema. He has no significant cellulitis; however, he has ecchymosis present, and there is no point of area that seems to be pointing, i.e., an abscess pointing at this time. It is firm enough that it is hard to tell if he has a true abscess underlying this. He did have an elevated white count on admission. He does have some minimal skin breaks on the surface of this area. IMPRESSION AND PLAN: Patient has evidence of elevated white count. Had a low-grade fever, and I agree he may have developed some sort of infection associated with this, although I am not convinced that he has a true abscess in this area, and with all the ecchymosis appreciated in this area, it is much more likely that he had a hematoma, developed some reactive erythema, and the surrounding skin over the top of this excoriated and had a superficial cellulitis that seems to have improved even since last night. Thus, at this point my recommendation is that he keep his leg elevated, put on an Jaziel wrap, and we will see how he does in the morning and re-evaluate him at this time, as his white count seems to decrease as well as the swelling seems to decrease. He may be an individual that may need a percutaneous aspiration of it, but, from my standpoint, he will continue on the antibiotics, and otherwise I would like him to stay in the hospital overnight for continued observation.
[2017-09-15] MEDS: MORPHINE 2 MG/ML 1ML SYRINGE IV PRN (21:24)
[2017-09-15] MEDS: traZODone 100 MG TAB PO SCH (21:26)
[2017-09-15] MEDS: LEVEMIR (INSULIN DETEMIR) 1 UNITS/0.01ML SC SCH (21:27)
[2017-09-15 22:00] VITALS: BP 139/80
[2017-09-16] MEDS: LevoFLOXacin IV 500 MG in APPROPRIATE DILUENT 1 EA IV SCH ×2 (00:03→23:57)
[2017-09-16] MEDS: MORPHINE 2 MG/ML 1ML SYRINGE IV PRN ×2 (01:57→04:57)
[2017-09-16] MEDS: PERCOCET 5MG/325MG TAB PO PRN ×4 (02:59→21:45)
[2017-09-16 06:00] VITALS: BP 126/75
[2017-09-16 06:12] LABS: BASO % 0.3 % (0.0-1.0); EOS # 0.1 10^3/uL (0.0-0.50); IMMATURE GRANULOCYTE % 0.4 % (0-0); LYMPH # 1.8 10^3/uL (1.5-4.5); MEAN CORPUSCULAR HEMOGLOBIN 29.7 pg (27.0-33.0); MEAN CORPUSCULAR HGB CONC 33.1 g/dl (32.0-36.5); MEAN CORPUSCULAR VOLUME 89.8 fl (80.0-96.0); MONO % 8.4 % (0.0-5.0); NEUTROPHILS % 74.9 % (36.0-66.0); PLATELET COUNT, AUTOMATED 282 10^3/uL (150-450); RED CELL DISTRIBUTION WIDTH 12.8 % (11.5-14.5)
[2017-09-16 06:28] LABS: ANION GAP 7 MEQ/L (8-16); BLOOD UREA NITROGEN 12 MG/DL (7-18); CALCIUM LEVEL 8.5 MG/DL (8.8-10.2); CARBON DIOXIDE LEVEL 29 MEQ/L (21-32); CHLORIDE LEVEL 98 MEQ/L (98-107); CREATININE FOR GFR 0.55 MG/DL (0.70-1.30); GLOMERULAR FILTRATION RATE > 60.0 (>49); GLUCOSE, FASTING 236 MG/DL (80-110); POTASSIUM SERUM 3.7 MEQ/L (3.5-5.1); SODIUM LEVEL 134 MEQ/L (136-145)
[2017-09-16] MEDS: VANCOMYCIN HCL 1,000 MG, VIAL MATE ADAPTER 1 EACH in D5W 250 ML IV SCH ×3 (06:35→21:36)
[2017-09-16] MEDS: NS 1,000 ML IV SCH ×2 (06:36→15:45)
[2017-09-16] MEDS: HumaLOG INSULIN (NovoLOG) PER UNIT SC SCH ×4 (07:26→21:34)
[2017-09-16] MEDS: METOPROLOL SUCC (TopROL XL) 50MG **XL** TAB PO SCH ×2 (08:09→21:35)
[2017-09-16] MEDS: SERTRALINE 100 MG TAB PO SCH (08:09)
[2017-09-16] MEDS: ENALAPRIL MALEATE 10 MG TAB PO SCH (08:09)
[2017-09-16] MEDS: ENOXAPARIN 40 MG/0.4 ML SYRINGE (J1650) SC SCH ×2 (08:10→08:11)
[2017-09-16] MEDS ORDERED: LIDOCAINE W/EPINEPHRINE 1% 20ML VIAL SC ONE (10:30)
--- NOTE | 2017-09-16 11:27 | NOCOX ---
DATE OF PROCEDURE: 09/15/2017 into the morning of 09/16/2017, done on room air, ordered by Dr. Sarkar. Study of excellent technical quality. It should be noted that according to the log much of the study was done with the patient awake in supine. Mean oxygen saturation for this study 94.2%. Lowest reliably recorded oxygen saturation 88%. Artifact is noted throughout. IMPRESSION: No significant oxygen desaturations identified on the above study. Please correlate clinically.
--- NOTE | 2017-09-16 13:11 | RO ---
DATE OF PROCEDURE: PREOPERATIVE DIAGNOSIS: Abscess right lower leg. POSTOPERATIVE DIAGNOSIS: Infected hematoma right lower leg. PROCEDURE: Incision and drainage of right lower leg abscess. SURGEON: Akhil Marmolejo MD CARD TABLE ATTENDANT: ANESTHESIA: Local lidocaine mixed with epinephrine. BRIEF PROCEDURE SUMMARY: The patient was left in his hospital bed, was prepped and draped in usual sterile fashion. Local lidocaine mixed with epinephrine was infiltrated into the skin, subcutaneous tissue in this area and a #18 gauge needle was placed into the subcutaneous tissue into this pocket, which revealed some necrotic purulent fluid that seemed to be an abscess as well as possible hematoma given the old bloody fluid within this as well. In any case, a #15 blade was used to create a cruciate type incision and was irrigated with peroxide getting a significant amount of purulent material out. This was packed with iodoform and dry sterile dressing. The patient's leg was elevated at this point to provide improved drainage of the lymphedema in this area and dressing change orders had been established.
[2017-09-16 14:00] VITALS: BP 124/78
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
--- NOTE | 2017-09-16 14:48 | PHACANCOPD ---
PHARMACY VANCOMYCIN DOSING Pt Demographics Demographics Patient Age:66 , Weight:101.200 , Gender: male Adjusted Body Weight Date: 09/15/17, Adjusted Body Weight: [81.9] Kg Events Past 24 Hours Events Past 24 Hours: YES: Pending Procedures (R calf I&D this am), NO: Dialysis, Diuretic Therapy, Change in CrCl, Fever, Elevation in WBC, Pending Diagnostics, Other Vancomycin Vancomycin indication: RLE CELLULITIS Vancomycin Target Ranges: 10-20 mcg/ml Vancomycin Load Y/N: No Load Dose Date Time Vancomycin Load Dose: Date: Time: Vancomycin Dose Date: 09/16/17. Current Vancomycin Dose: [1g IV q8h @14] Date: 09/15/17. Current Vancomycin Dose: [1 GM IV Q12] Intermittent Dosing?: No Labs Labs Item Value Date Time Vancomycin Level Trough 4.1 UG/ML L 09/16/17 0508 Creatinine 0.72 MG/DL 09/15/17 0610 Creatinine 0.55 MG/DL L 09/16/17 0508 White Blood Count 12.0 10^3/uL H 09/16/17 0508 White Blood Count 11.1 10^3/uL H 09/15/17 0610 White Blood Count 13.1 10^3/uL H 09/14/17 1748 Micro Microbiology 09/14/17 Blood Culture - Preliminary, Resulted No growth after 24 hours . All specim... 09/14/17 Blood Culture - Preliminary, Resulted No growth after 24 hours . All specim... 09/16/17 Abscess Culture, Received Pending Creatinine Clearance Date:09/16/17. Creatinine Clearance: [>100 ml/min]. Date:09/15/17. Creatinine Clearance: [92.7]CALCULATED. Pending Labs Assessment and Plan Maintaining Current Dose?: No Reason for dose change: Trough too low Pharmacist Note Pharmacist Note Date: 09/16/17. Pharmacist note: vanco trough drawn this morning was low, I have increased his dosing to 1g IV q8h. Pt had an I&D of his right calf this morning , cultures are pending. No hx of MRSA, pt had a previous abscess (groin) in 2016 that grew strep grp b. Labs have been stable. We will continue to monitor and make adjustments as necessary. Milton Dang Pharm.D. Sep 16, 2017 14:48
[2017-09-16] MEDS: LEVEMIR (INSULIN DETEMIR) 1 UNITS/0.01ML SC SCH (21:00)
[2017-09-16] MEDS: traZODone 100 MG TAB PO SCH (21:35)
[2017-09-16] MEDS: SIMVASTATIN 40 MG TAB PO SCH (21:35)
[2017-09-16 22:00] VITALS: BP 129/75
[2017-09-17] MEDS: NS 1,000 ML IV SCH ×2 (04:04→12:30)
[2017-09-17] MEDS: VANCOMYCIN HCL 1,000 MG, VIAL MATE ADAPTER 1 EACH in D5W 250 ML IV SCH ×3 (05:14→17:18)
[2017-09-17] MEDS: PERCOCET 5MG/325MG TAB PO PRN ×3 (05:15→21:15)
[2017-09-17 05:51] LABS: BASO # 0.1 10^3/uL (0.0-0.2); BASO % 0.5 % (0.0-1.0); EOS # 0.2 10^3/uL (0.0-0.50); EOS % 2.5 % (0.0-3.0); IMMATURE GRANULOCYTE % 0.5 % (0-0); LYMPH # 1.9 10^3/uL (1.5-4.5); LYMPH % 20.1 % (24.0-44.0); MEAN CORPUSCULAR HEMOGLOBIN 29.7 pg (27.0-33.0); MEAN CORPUSCULAR HGB CONC 32.8 g/dl (32.0-36.5); MEAN CORPUSCULAR VOLUME 90.5 fl (80.0-96.0); MONO # 0.7 10^3/uL (0.0-0.8); MONO % 7.4 % (0.0-5.0); NEUTROPHILS # 6.6 10^3/uL (1.8-7.7); PLATELET COUNT, AUTOMATED 253 10^3/uL (150-450); RED CELL DISTRIBUTION WIDTH 13.1 % (11.5-14.5); WHITE BLOOD COUNT 9.6 10^3/uL (4.0-10.0)
[2017-09-17 06:00] VITALS: BP 132/79
[2017-09-17 06:13] LABS: ANION GAP 4 MEQ/L (8-16); BLOOD UREA NITROGEN 13 MG/DL (7-18); CALCIUM LEVEL 8.6 MG/DL (8.8-10.2); CARBON DIOXIDE LEVEL 34 MEQ/L (21-32); CHLORIDE LEVEL 98 MEQ/L (98-107); GLOMERULAR FILTRATION RATE > 60.0 (>49); GLUCOSE, FASTING 250 MG/DL (80-110); POTASSIUM SERUM 3.7 MEQ/L (3.5-5.1); SODIUM LEVEL 136 MEQ/L (136-145)
[2017-09-17] MEDS: ENALAPRIL MALEATE 10 MG TAB PO SCH (08:10)
[2017-09-17] MEDS: SERTRALINE 100 MG TAB PO SCH (08:10)
[2017-09-17] MEDS: METOPROLOL SUCC (TopROL XL) 50MG **XL** TAB PO SCH ×2 (08:10→21:16)
[2017-09-17] MEDS: ENOXAPARIN 40 MG/0.4 ML SYRINGE (J1650) SC SCH (08:11)
[2017-09-17] MEDS: HumaLOG INSULIN (NovoLOG) PER UNIT SC SCH ×4 (08:12→21:13)
--- NOTE | 2017-09-17 09:44 | IPN ---
DATE OF SERVICE: 09/17/2017 The patient overall states that his right leg pain is substantially improved since yesterday, and his temperature has been good overnight. His white counts dropped down to 9.6. He has had some dressing changes and tolerated these adequately but still has a significant amount of swelling on his leg. On his physical examination, he has decreasing edema compared to yesterday but still quite indurated and inflamed in the area of the kaur on the right-hand side. There are some chronic inflammatory changes associated with this, and it does not appear as infected as it appears, probably some subcutaneous necrosis that probably occurred with this chronic infection/hematoma. IMPRESSION AND PLAN: The patient overall has had incision and drainage of the site. We have asked dressing changes to continue and will follow him while he is in the hospital. I do feel that it is reasonable to keep him another 24 hours to wait for the microbiology to come back. Once this comes back, then you can discharge him home on by mouth antibiotics and continued dressing changes.
[2017-09-17 14:00] VITALS: BP 127/74
--- NOTE | 2017-09-17 14:03 | PHACANCOPD ---
PHARMACY VANCOMYCIN DOSING Pt Demographics Demographics Patient Age:66 , Weight:101.200 , Gender: male Adjusted Body Weight Date: 09/15/17, Adjusted Body Weight: [81.9] Kg Events Past 24 Hours Events Past 24 Hours: NO: Dialysis, Diuretic Therapy, Change in CrCl, Fever, Elevation in WBC, Pending Diagnostics, Pending Procedures, Other Vancomycin Vancomycin indication: RLE CELLULITIS Vancomycin Target Ranges: 10-20 mcg/ml Vancomycin Load Y/N: No Load Dose Date Time Vancomycin Load Dose: Date: Time: Vancomycin Dose Date: 09/17/17. Current Vancomycin Dose: [1G IV Q6H @18] Date: 09/16/17. Current Vancomycin Dose: [1g IV q8h @14] Date: 09/15/17. Current Vancomycin Dose: [1 GM IV Q12] Intermittent Dosing?: No Labs Labs Item Value Date Time Vancomycin Level Trough 4.1 UG/ML L 09/16/17 0508 Vancomycin Level Trough 8.4 UG/ML L 09/17/17 1246 Creatinine 0.72 MG/DL 09/15/17 0610 Creatinine 0.55 MG/DL L 09/16/17 0508 Creatinine 0.60 MG/DL L 09/17/17 0505 Micro Microbiology 09/14/17 Blood Culture - Preliminary, Resulted No Growth after 48 hours. All Specime... 09/14/17 Blood Culture - Preliminary, Resulted No Growth after 48 hours. All Specime... 09/16/17 Abscess Culture - Preliminary, Resulted Staphylococcus Aureus Creatinine Clearance Date:09/16/17. Creatinine Clearance: [>100 ml/min]. Date:09/15/17. Creatinine Clearance: [92.7]CALCULATED. Pending Labs Assessment and Plan Maintaining Current Dose?: No Reason for dose change: Trough too low Pharmacist Note Pharmacist Note Date: 09/17/17. Pharmacist note: Vanco trough drawn today was low @ 8.4mcg/ml. We will increase frequency to 1g iv q6h a trough is scheduled for 09/18 @17:00. We will continue to monitor and adjust dose as needed. Date: 09/16/17. Pharmacist note: vanco trough drawn this morning was low, I have increased his dosing to 1g IV q8h. Pt had an I&D of his right calf this morning , cultures are pending. No hx of MRSA, pt had a previous abscess (groin) in 2016 that grew strep grp b. Labs have been stable. We will continue to monitor and make adjustments as necessary. [facility] Sep 17, 2017 14:03
--- NOTE | 2017-09-17 17:45 | IPN ---
DATE: 09/17/2017 SUBJECTIVE: The patient tells me that he feels significantly better today after drainage of the abscess. He has no fevers. No chills. No chest pain or shortness of breath and the pain has improved. OBJECTIVE: VITAL SIGNS: Temperature 99.6, pulse 73 and irregular, respiratory rate is 18, blood pressure 127/74, oxygen saturation 98% on room air. GENERAL: He is a pleasant, man in no distress. NEUROLOGIC: Cranial nerves II-XII are intact. HEENT: Moist mucous membranes. CARDIOVASCULAR EXAMINATION: Irregularly irregular. Not tachycardic. RESPIRATORY: Clear. ABDOMINAL EXAMINATION: Obese. EXTREMITIES: Marked decreased erythema, tenderness and swelling of the distal right lower extremity. LABORATORY STUDIES: WBC 9.6 down from 12, hemoglobin 13.7, platelet count 253. Chemistry panel: Sodium 136, potassium 3.7, chloride 98, bicarbonate 34, BUN 13, creatinine 0.6. MICROBIOLOGY: Abscess culture and sensitivity is currently pending. No new imaging. ASSESSMENT AND PLAN: This is a 66-year-old man with right lower extremity abscess. PROBLEMS: 1. Right lower extremity abscess, status post incision and drainage by Dr. Marmolejo whose help is greatly appreciated. Reportedly, there was a significant amount of pus that returned. We await his culture data. He does appear to be improving with antibiotic regimen, highly suspicious for Staphylococcus. I suspect that over the next 24 hours, he will continue to improve and can be transitioned to oral doxycycline 100 mg by mouth twice a day to complete a 10-day course with close followup with his primary care provider (PCP) and Dr. Marmolejo. For the time being, he remains on levofloxacin and vancomycin. We will narrow the spectrum as soon as possible. 2. Hypovolemic hyponatremia, resolved with IV fluids. 3. Hypertension. Controlled with enalapril and metoprolol. 4. Insomnia. He is on trazodone. 5. Atrial fibrillation. Rate controlled with metoprolol and refused anticoagulation in the past and during this visit. 6. Dyslipidemia. He is on Zocor. 7. Type 2 diabetes. He is on sliding scale. Fingersticks are controlled. 8. Mood disorder. He is on Zoloft. 9. Deep vein thrombosis (DVT) prophylaxis. Sequentials, thromboembolic-deterrent stockings (TEDS), and Lovenox. DISPOSITION: Possibly home within the next 24-48 hours.
[2017-09-17] MEDS: LEVEMIR (INSULIN DETEMIR) 1 UNITS/0.01ML SC SCH (21:14)
[2017-09-17] MEDS: SIMVASTATIN 40 MG TAB PO SCH (21:15)
[2017-09-17] MEDS: traZODone 100 MG TAB PO SCH (21:16)
[2017-09-17 22:00] VITALS: BP 127/87
[2017-09-18] MEDS: VANCOMYCIN HCL 1,000 MG, VIAL MATE ADAPTER 1 EACH in D5W 250 ML IV SCH ×3 (00:20→12:28)
[2017-09-18] MEDS: PERCOCET 5MG/325MG TAB PO PRN ×3 (01:20→12:45)
[2017-09-18 02:30] VITALS: BP 127/87
[2017-09-18] MEDS: NS 1,000 ML IV SCH (02:55)
[2017-09-18 06:58] LABS: ANION GAP 2 MEQ/L (8-16); BLOOD UREA NITROGEN 11 MG/DL (7-18); CALCIUM LEVEL 8.6 MG/DL (8.8-10.2); CARBON DIOXIDE LEVEL 35 MEQ/L (21-32); CHLORIDE LEVEL 101 MEQ/L (98-107); CREATININE FOR GFR 0.63 MG/DL (0.70-1.30); GLOMERULAR FILTRATION RATE > 60.0 (>49); GLUCOSE, FASTING 172 MG/DL (80-110); POTASSIUM SERUM 3.7 MEQ/L (3.5-5.1); SODIUM LEVEL 138 MEQ/L (136-145)
[2017-09-18 08:00] VITALS: BP 162/83
[2017-09-18] MEDS: ENOXAPARIN 40 MG/0.4 ML SYRINGE (J1650) SC SCH (08:34)
[2017-09-18] MEDS: HumaLOG INSULIN (NovoLOG) PER UNIT SC SCH ×2 (08:35→12:29)
[2017-09-18] MEDS: SERTRALINE 100 MG TAB PO SCH (08:35)
[2017-09-18] MEDS: ENALAPRIL MALEATE 10 MG TAB PO SCH (08:37)
[2017-09-18 08:38] VITALS: BP 162/83
[2017-09-18] MEDS: METOPROLOL SUCC (TopROL XL) 50MG **XL** TAB PO SCH (08:38)
[2017-09-18 09:29] LABS: BASO # 0.1 10^3/uL (0.0-0.2); BASO % 0.6 % (0.0-1.0); EOS # 0.3 10^3/uL (0.0-0.50); EOS % 2.8 % (0.0-3.0); IMMATURE GRANULOCYTE % 0.6 % (0-0); LYMPH # 2.4 10^3/uL (1.5-4.5); LYMPH % 22.7 % (24.0-44.0); MEAN CORPUSCULAR HEMOGLOBIN 29.8 pg (27.0-33.0); MEAN CORPUSCULAR VOLUME 90.5 fl (80.0-96.0); MONO # 0.7 10^3/uL (0.0-0.8); MONO % 6.8 % (0.0-5.0); NEUTROPHILS # 7.1 10^3/uL (1.8-7.7); NEUTROPHILS % 66.5 % (36.0-66.0); PLATELET COUNT, AUTOMATED 326 10^3/uL (150-450); RED CELL DISTRIBUTION WIDTH 12.9 % (11.5-14.5); WHITE BLOOD COUNT 10.7 10^3/uL (4.0-10.0)
[2017-09-18] MEDS ORDERED: PERCOCET PO (13:47)
[2017-09-18] MEDS ORDERED: CEFD300CAP PO (13:47)
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
[2017-09-18] MEDS ORDERED: CEFDINIR 300 MG CAP (OMNICEF) PO SCH (21:00)
== END 2017-09-18 17:11 | disposition home health service (06) | DRG 364 ==
LOC: M ED 13:59 → M ED INP 22:06 → M MSPAV 09-15 15:16 → M MS4PR 09-18 02:19
PROVIDERS: ADMIT Internal Medicine; ATTEND Hospitalist
PROC: 0J9N0ZZ Drainage of Right Lower Leg Subcutaneous Tissue and Fascia, Open Approach (ICD-10-PCS; principal; 2017-09-14)
DX: L03.115 Cellulitis of right lower limb (principal); E87.2 Acidosis; I48.0 Paroxysmal atrial fibrillation; E87.1 Hypo-osmolality and hyponatremia; G47.00 Insomnia, unspecified; E11.9 Type 2 diabetes mellitus without complications; E78.5 Hyperlipidemia, unspecified; I10 Essential (primary) hypertension; F39 Unspecified mood [affective] disorder; Z79.899 Other long term (current) drug therapy; Z79.4 Long term (current) use of insulin